=== PATIENT | female | born 1975 | race Caucasian/White ===

== ENCOUNTER → 2020-11-24 16:19 | Outpatient (CLI) | payer BC, SELFPAY ==
--- NOTE | 2020-11-24 16:28 | XR_ITS ---
PROCEDURE: XR ANKLE WT BEARING RT MIN 3V CLINICAL INDICATION: Pain Injury with pain COMPARISON: No exams were available for comparison FINDINGS: Bones: There is an avulsion fracture involving the tip of the lateral malleolus laterally. There is an additional small avulsed fragment just proximal to the tip. This fragment is displaced laterally by 3 mm. There is overlying soft tissue swelling. On the lateral view there may be an oblique fracture of the posterior distal fibula or tibia both of these bony structures overlying 1 another. Joints: The joint spaces are well-preserved. No significant degenerative/arthritic changes. No erosive changes evident. Other findings:None. IMPRESSION: Nondisplaced avulsion of the tip of the fibula with a displaced avulsion fracture also noted. On the lateral view there is a vague oblique lucency posteriorly which could represent a nondisplaced fracture of the tibia and posteriorly or the fibula Dictated by: Vicente Linares MD 11/24/2020 16:49 Vicente Linares MD in [place] 11/24/2020 16:49
== END ==
PROVIDERS: PCP Physician Assistant; Visit Provider Podiatrist
DX: M25.571 Pain in right ankle and joints of right foot (principal)
CPT/HCPCS: 73610

== ENCOUNTER → 2020-12-25 08:42 | Outpatient (CLI) | payer BC, SELFPAY ==
--- NOTE | 2020-12-25 09:11 | XR_ITS ---
PROCEDURE: XR ANKLE WT BEARING RT MIN 3V CLINICAL INDICATION: fracture follow up COMPARISON: CR XR ANKLE WT BEARING RT MIN 3V from 11/24/2020 FINDINGS: Avulsion fracture of the distal aspect of the fibula once again noted with a minimally displaced fragment not significantly changed. Soft tissue swelling has improved. Previously noted lucency at the posterior distal tibia not as apparent and may have represented overlying prominent trabeculation.. IMPRESSION: Improved soft tissue swelling with no change in the avulsion fracture at the tip of the distal fibula and just proximal to the distal fibula laterally Dictated by: Vicente Linares MD 12/25/2020 09:56 Vicente Linares MD in [place] 12/25/2020 09:56
== END ==
PROVIDERS: PCP Family Medicine; Visit Provider Podiatrist
DX: S82.891D Other fracture of right lower leg, subsequent encounter for closed fracture with routine healing (principal); S82.391D Other fracture of lower end of right tibia, subsequent encounter for closed fracture with routine healing; S82.831D Other fracture of upper and lower end of right fibula, subsequent encounter for closed fracture with routine healing; T14.8XXA Other injury of unspecified body region, initial encounter
CPT/HCPCS: 73610